=== PATIENT | female | born 1985 | race Caucasian/White ===

== ENCOUNTER 2016-12-18 13:35 | Emergency (ER) | payer OTHER | END 2016-12-18 15:15 | disposition home or self-care (01) | LOC: MADERS 13:35 | DX: J11.1 Influenza due to unidentified influenza virus with other respiratory manifestations (principal); F17.210 Nicotine dependence, cigarettes, uncomplicated; Z79.899 Other long term (current) drug therapy | CPT/HCPCS: 87081; 87430; 99283 ==

== ENCOUNTER 2018-04-08 19:49 | Emergency (ER) | payer OTHER, SELFPAY ==
[2018-04-08] MEDS ORDERED: Doxycycline 100 MG CAP ONE (20:20)
== END 2018-04-08 20:36 | disposition home or self-care (01) ==
LOC: MADERS 19:49
DX: L02.214 Cutaneous abscess of groin (principal); F43.10 Post-traumatic stress disorder, unspecified; F41.9 Anxiety disorder, unspecified; F98.8 Other specified behavioral and emotional disorders with onset usually occurring in childhood and adolescence; F17.210 Nicotine dependence, cigarettes, uncomplicated; Z79.899 Other long term (current) drug therapy
CPT/HCPCS: 10060

== ENCOUNTER 2021-07-15 19:07 | Emergency (ER) | payer SELFPAY ==
[2021-07-16 17:40] LABS: SARS-CoV-2 PCR by NAA DETECTED (NotDetected)
== END 2021-07-15 23:49 | disposition home or self-care (01) ==
LOC: MADERS 19:07
DX: U07.1 COVID-19 (principal); F17.200 Nicotine dependence, unspecified, uncomplicated
CPT/HCPCS: 99283; U0003; U0005